=== PATIENT | male | born 1980 | race Caucasian/White ===

== ENCOUNTER 2020-09-09 08:57 | Emergency (ER) | payer MEDICARE, MEDICAID, SELFPAY ==
--- NOTE | 2020-09-09 08:57 | W.ED.GENAD ---
Discharge Plan Disposition Patient Disposition: HOME Condition: Stable Discharge Details Clinical Impression: Oral candidiasis Primary Care Provider: None,None ED Provider: Mila Zamudio Home Meds and New Rx's Prescriptions: New nystatin 100,000 unit/mL suspension 500,000 unit PO QID 14 Days Qty: 280 RF: 0 Continued quetiapine [Seroquel] 25 mg Tablet 25 mg PO PRN PRNRF: 0 omega-3 fatty acids-vitamin E 1,000 mg Capsule 1 cap PO DAILY RF: 0 Discontinued paliperidone 3 mg Tablet Extended Release 24hr 3 mg PO QAM PRNRF: 0 paliperidone 6 mg Tablet Extended Release 24hr 6 mg PO DAILY RF: 0 Discharge Instructions Instructions: Oral Candidiasis (ED) Additional Instructions: Take the nystatin as directed. Stop taking the paliperidone as this could have a possible side effect of angioedema which is tongue and lip swelling. Your presentation does not appear obviously consistent with this, but considering the risk of this developing or worsening, I recommend to stop the paliperidone. Discussed with your psychiatrist if there are any other additional recommendations for other antipsychotics. Follow-up with your primary care doctor in 1 week. Return to the emergency department with any worsening or new concerning symptoms with any worsening symptoms of difficulty swallowing, tongue swelling, fever or vomiting. Discharge Data Discharge Physician: Mila Zamudio Medical Decision Making 39-year-old male with a history of multiple TBI and paranoid schizophrenia presents with tongue pain swelling, difficulty speaking and swallowing for the past 6 weeks. Heart rate 120s, which I suspect is likely due to anxiety. Patient appears significantly anxious. Poor dentition but no evidence of dental abscess. He has a white coating on his tongue that does wipe off with tongue depressor. He has questionable very minimal tongue swelling. He has minimal posterior pharyngeal erythema but no exudates. There is no swelling, induration or fluctuance noted in floor of mouth. No facial or lip swelling. No submandibular swelling, trismus or drooling. He does appear to have a mild change in phonation but not consistent with a hot potato voice. Presentation not consistent with Jacques's angina or angioedema. Presentation most likely consistent with oral candidiasis. Review of medications notes that paliperidone has a risk factor of angioedema. It may be a consideration that he stops this medication in case this is any relation to his symptoms. Patient initially declined any IV, lab work, noncontrast or contrasted CT neck. He states he is claustrophobic and does not want to go on the CT scanner and also will vagovagal with any IV. He verbally signed AMA paperwork as the risks of and disability due to missing a possible serious oral pathology explained and he fully understood. He demonstrated capacity make decisions. Just as patient was leaving, he then requested to look at the CT scanner to see if he could possibly do this test. He still refused any IV. A CT neck without contrast was performed which noted Mildly enlarged lymph nodes in the submandibular region of the neck which are likely reactive. Discussed with patient and menagerie caretaker at bedside that airway appears patent and clinically does not appear consistent with angioedema, however advised that he stop taking the paliperidone for this possible rare side effect. I discussed that I feel his presentation is likely consistent with oral candidiasis. He is fearful to take additional medication but is agreeable to 1 oral dose of liquid Decadron. He was given a prescription for nystatin. He is speaking in full sentences with normal oxygen saturation and appears in no acute distress. Advised to follow up with the primary care doctor for re-evaluation. Usual and customary return precautions given prior to discharge. Medical Records Medical records reviewed: Yes I reviewed the patient's medical records. Imaging Data Radiologic Study: Radiologist's impression: CT NECK WO CLINICAL HISTORY: tongue and neck swelling. TECHNIQUE: Imaging Protocol: Axial computed tomography images with coronal and sagittal reformatted images were created and reviewed. CONTRAST MATERIAL: Intravenous: Omnipaque 350 Contrast volume:This is a noncontrast examination. COMPARISON: No exams were available for comparison FINDINGS: Orbits and orbital soft tissues: Within normal limits. Visualized paranasal sinuses: Within normal limits. Nasopharynx: Within normal limits. Oropharynx: Within normal limits. Hypopharynx: Within normal limits. Larynx: Within normal limits. Retropharyngeal space: Within normal limits. Parotids/submandibular: Within normal limits. Thyroid gland: Within normal limits. Lymphadenopathy: Mildly enlarged lymph nodes are seen in the submandibular region bilaterally. These are likely reactive. Trachea: Within normal limits. Lung apices: Within normal limits. Bones: Within normal limits. Carotids/Jugular: Within normal limits. Soft tissues: Within normal limits. IMPRESSION: Mildly enlarged lymph nodes in the submandibular region of the neck which are likely reactive. Otherwise unremarkable examination. Findings were discussed with the emergency department on the date of the examination. HPI General Mode of arrival: ambulatory. Date/Time Provider Initiated Documentation: 09/09/20 08:57. Limitations to Documentation: no limitations. Information obtained by: patient. HPI Narrative: Patient is a 39-year-old male with a history of multiple TBI, paranoid schizophrenia presents with tongue swelling and pain, sensation of throat swelling and difficulty swallowing for the past 6 weeks. Patient was seen at urgent care yesterday for similar complaints and provider was concerned about possible Jacques's angina and advised that he come to the emergency department for further evaluation including CT scan. Patient states he is very nervous about doctors and hospitals and did not want to come to the ER at this time. He has brought here by his menagerie caretaker at the [facility]. Patient states he currently does not have pain and feels that his main problem is tongue swelling and white coating on his tongue and feeling like he is having difficulty swallowing and talking. He is denying any sore throat, fever, chest pain or shortness of breath. He states he was able to eat yogurt this morning and able to take liquids normally. He states he feels he is having difficulty following more solid foods. Related Data Home Medications Medication Instructions Recorded Confirmed nystatin 500,000 unit PO QID 14 Days #280 ml 09/09/20 omega-3 fatty acids-vitamin E 1 cap PO DAILY 09/09/20 09/09/20 quetiapine [Seroquel] 25 mg PO PRN PRN 09/09/20 09/09/20 Previous Rx's Medication Instructions Recorded nystatin 500,000 unit PO QID 14 Days #280 ml 09/09/20 Allergies Allergy/AdvReac Type Severity Reaction Status Date / Time No Known Allergies Allergy Unverified 09/09/20 09:10 Review of Systems All systems reviewed & are unremarkable except as noted in HPI and below Constitutional Constitutional: Reports as per HPI, Denies chills and Denies fever(s) Eyes Eyes: Denies blurry vision ENT Ears, Nose, Mouth, and Throat: Denies dizziness, Denies sore throat and Denies throat swelling Cardiovascular Cardiovascular: Denies chest pain and Denies dyspnea Respiratory Respiratory: Denies cough and Denies dyspnea Gastrointestinal Gastrointestinal: Denies abdominal pain, Denies diarrhea and Denies vomiting Genitourinary Genitourinary: Denies hematuria and Denies dysuria Musculoskeletal Musculoskeletal: Denies back pain and Denies numbness Integumentary/Breasts Skin/Breast: Denies lesions and Denies rash Neurologic Neurologic: Denies dizziness, Denies localized weakness and Denies numbness Allergic/Immunologic Allergic/Immunologic: Denies throat swelling [facility] Medical History (Updated 09/09/20 @ 09:57 by Mila Zamudio DO) Schizophrenia TBI (traumatic brain injury) Surgical History (Updated 09/09/20 @ 09:46 by Mila Zamudio DO) No significant past surgical history Social History Smoking/Tobacco Use Status: Current every day Tobacco Type: cigarettes Smoking risk assessment performed?: Yes Alcohol Intake: never Substance use type: does not use Do you feel safe at home: Yes Exam Const General: anxious Orientation: alert, awake and oriented x3 HENMT Head: normal to inspection Ears: hearing grossly normal bilaterally, external ears normal and TM's normal bilaterally Face and sinus: normal facial exam Mouth: tongue abnormal (minimally edematous) and other (white coating on tongue wipes off easily) Teeth and gingiva: poor dentition and other (tobacco on inner aspect of lower front teeth) Throat: posterior oropharynx abnormal (minimal posterior erythema) Eyes General: appearance normal, both eyes and all related structures EOM: EOM intact bilaterally Neck Neck: normal visual inspection, no meningeal signs, trachea midline, supple, no anterior neck swelling and No submandibular swelling Lymphatic: no lymphadenopathy noted Chest Chest: normal inspection of the chest and no tenderness Resp Effort & Inspection: normal respiratory effort and able to speak in complete sentences Auscultation: clear to auscultation bilaterally Cardio Rate: regular rate Rhythm: regular rhythm Skin General skin exam: no rashes or lesions noted Neuro General: patient alert, patient awake and patient oriented x3 Cognition: normal cognition Speech: speech normal Motor: muscle tone normal throughout Sensory Exam: no sensory deficits noted Extrem General: normal to inspection, full ROM, capillary refill normal, no calf tenderness bilaterally and no edema Psych Appearance: grossly normal Mental Status: mental status grossly normal Speech and Movement: speech and movement normal Affect: normal affect
[2020-09-09 09:02] VITALS: BP 149/94; PULSE 127; RESP 20; TEMP 37; O2SAT 98
--- NOTE | 2020-09-09 10:20 | DI.CT_ITS ---
EXAM: CT NECK WO CLINICAL HISTORY: tongue and neck swelling. TECHNIQUE: Imaging Protocol: Axial computed tomography images with coronal and sagittal reformatted images were created and reviewed. CONTRAST MATERIAL: Intravenous: Omnipaque 350 Contrast volume:This is a noncontrast examination. COMPARISON: No exams were available for comparison FINDINGS: Orbits and orbital soft tissues: Within normal limits. Visualized paranasal sinuses: Within normal limits. Nasopharynx: Within normal limits. Oropharynx: Within normal limits. Hypopharynx: Within normal limits. Larynx: Within normal limits. Retropharyngeal space: Within normal limits. Parotids/submandibular: Within normal limits. Thyroid gland: Within normal limits. Lymphadenopathy: Mildly enlarged lymph nodes are seen in the submandibular region bilaterally. Thes e are likely reactive. Trachea: Within normal limits. Lung apices: Within normal limits. Bones: Within normal limits. Carotids/Jugular: Within normal limits. Soft tissues: Within normal limits. IMPRESSION: Mildly enlarged lymph nodes in the submandibular region of the neck which are likely reactive. Other kelly unremarkable examination. Findings were discussed with the emergency department on the date of the examination. RADIATION DOSE DELIVERED: 702.1mGy.cm Total DLP 702.1mGy.cm Total DLP DATA REPOSITORY: All CT scans at this facility are submitted to the National Radiology Data Registry (NRDR) Dose Index Registry (DIR) with the [employer] ([employer]). RADIATION OPTIMIZATION: All CT scans at this facility use at least one of these dose optimization te chniques: automated exposure control; mA and/or kV adjustment per patient size (includes targeted exa ms where dose is matched to clinical indication); or iterative reconstruction.
--- NOTE | 2020-09-09 10:28 | NUR.NOTE ---
Nursing Note:Patient not willing to have an IV for CT scan and wants to leave. Dr. Mcgee discussed with patient and Valuer possible consequences of not having CT Scan done to r/o any possible disease process, to include . Patient was also given the option of having the CT without IV contrast and he continued to refuse the CT. Patient then asked if he could just see the machine. The case was discussed with Radiology and they agree to patient request. Patient, Valuer and I walked to CT room. Radiology staff explained to patient what he would need to do and that they can hear him at all times and he would be able to hear them. Patient also concerned how long scan would take and staff let him know it would be no more than 5 min. Patient agrees to scan and removed his sweat shirt and vest readily and laid down on CT table. When CT was done patient asked if they could go. I let him know Dr. Mcgee would like him to wait for the results. Patient stated he did not care what they were. Patient asked how long and I let him know typically within the hour. Patient asking to leave. I let patient and Valuer it would be the same scenario, AMA if they left. before results were back. Dr. Mcgee informed. Patient currently sitting on stretcher talking with Valuer. Patient calm and cooperative.
[2020-09-09] MEDS: Dexamethasone 10 MG/ML VIAL PO (10:55)
== END 2020-09-09 11:12 | disposition home or self-care (01) ==
PROVIDERS: Emergency Provider Physician Assistant
DX: B37.0 Candidal stomatitis (principal); K14.6 Glossodynia; R13.10 Dysphagia, unspecified
CPT/HCPCS: 99284; 70490; 99285; J1100